=== PATIENT | female | born 1940 | race Caucasian/White ===

== ENCOUNTER 2020-11-16 06:29 | Day surgery (SDC) | payer OTHER ==
--- NOTE | 2020-11-13 20:47 | NUR ---
COPY OF TESTING SENT TO OR FOR ANESTHESIA TO REVIEW. PT REPORTS "DR REVIEWED LABS AT PREOP VISIT THIS WEEK. COVID TESTING DONE THIS WEEK AT [facility]."
[~2020-11-16] VITALS: Ht 167.6 cm; Wt 83.9 kg
[2020-11-16 07:16] VITALS: BP 155/82
[2020-11-16 18:18] VITALS: BP 136/64
== END 2020-11-16 18:10 | disposition home or self-care (01) ==
LOC: DS 06:29 → OR 09:30 → DS 09:30
PROVIDERS: ATTEND Orthopaedic Surgery
DX: S46.011A Strain of muscle(s) and tendon(s) of the rotator cuff of right shoulder, initial encounter (principal); S46.111A Strain of muscle, fascia and tendon of long head of biceps, right arm, initial encounter; I10 Essential (primary) hypertension; I25.2 Old myocardial infarction; I25.10 Atherosclerotic heart disease of native coronary artery without angina pectoris; Z79.899 Other long term (current) drug therapy; X58.XXXA Exposure to other specified factors, initial encounter; Y93.89 Activity, other specified; Y92.89 Other specified places as the place of occurrence of the external cause; Y99.8 Other external cause status
CPT/HCPCS: 94150; 97110-GP; C1713; J0131; J0171; J0330; J0690; J1170; J2175; J2250; J2405; J2704; J3010; J3490; J7120